=== PATIENT | male | born 1945 | race African-American/Black ===

== ENCOUNTER → 2017-06-20 | Outpatient (CLI) | payer MEDICARE ==
[~2017-06-20] MED LIST: COSOPT1 UNI1; FLOMAX0.4 M1; IRON1 TAB; PRILOSEC; SYNTHROID; TRAMADOL HCL50 M1 PO
--- NOTE | ~2017-06-20 | CR243 ---
[facility] A Service of [facility] & [facility] RADIOLOGY TEXT RESULTS PATIENT: CHA MALIK LOCATION: [facility] : [birth year] UNIT #: [id number] AGE: [address]: AMANDA MORRIS APRN SEX: M ORDER DR: [id number] [facility] [address] [place], [place] [address] [id number] O MR#: [id number] Acc #: [id number] NAME: CHA MALIK : 1945 SEX: M STUDY DATE/TIME: 06/20/2017 15:06 UNIT: [facility] ROOM: STUDY DESCRIPTION: CR Thoracic Spine 3 Views Attending Physician: Amanda Morris Aprn Ordering Physician: Amanda Morris Aprn MEDICAL IMAGING REPORT This report is preliminary unless electronic signature is present EXAM Thoracic spine INDICATIONS Mid-back pain, 1-week duration. TECHNIQUE 3 views of the thoracic spine without comparison. FINDINGS There is no acute fracture or subluxation. Vertebral body height and alignment is normal. There is multilevel moderate disc space narrowing with some associated osteophyte formation. IMPRESSION No acute findings. Moderate degenerative changes of the thoracic spine. Dictated by... Moose Mcdonald M.D. THIS IS AN ELECTRONICALLY VERIFIED REPORT Moose Mcdonald M.D. at 06/21/2017 3:55 PM RPC/jose miguel TD: 06/21/2017 13:50 JOB #: [id number] MEDICAL IMAGING REPORT Page 1 of 1 COPY
--- NOTE | ~2017-06-20 | CR181 ---
[facility] A Service of [facility] & [facility] RADIOLOGY TEXT RESULTS PATIENT: CHA MALIK LOCATION: [facility] : 49 UNIT #: [id number] AGE: [address]: AMANDA MORRIS APRN SEX: M ORDER DR: [id number] [facility] [address] [place], [place] [address] [id number] O MR#: [id number] Acc #: [id number] NAME: CHA MALIK : 1945 SEX: M STUDY DATE/TIME: 06/20/2017 15:06 UNIT: [facility] ROOM: STUDY DESCRIPTION: CR Lumbar Spine 2 or 3 Views Attending Physician: Amanda Morris Aprn Ordering Physician: Amanda Morris Aprn MEDICAL IMAGING REPORT This report is preliminary unless electronic signature is present EXAM Lumbar spine INDICATIONS Low back pain for 1 week. TECHNIQUE 3 views of the lumbar spine without comparison. FINDINGS There is no acute fracture or subluxation. Moderate disc space narrowing is noted throughout the lumbar spine. There is some associated osteophyte formation and facet arthropathy. Sacroiliac joints are normal. IMPRESSION Moderate osteoarthritis of the lumbar spine. Dictated by... Moose Mcdonald M.D. THIS IS AN ELECTRONICALLY VERIFIED REPORT Moose Mcdonald M.D. at 06/21/2017 3:55 PM CINDY/jose miguel TD: 06/21/2017 13:51 JOB #: [id number] MEDICAL IMAGING REPORT Page 1 of 1 COPY
== END | disposition home or self-care (01) ==
LOC: CRAD 14:42
DX: M54.9 Dorsalgia, unspecified (principal); M47.894 Other spondylosis, thoracic region; M47.896 Other spondylosis, lumbar region
CPT/HCPCS: 72072; 72100